=== PATIENT | male | born 1955 | race Caucasian/White ===

== ENCOUNTER 2016-05-28 19:45 | Emergency (ER) | payer BC ==
[~2016-05-28] VITALS: Ht 177.8 cm; Wt 95.0 kg
--- OUTSIDE RECORDS SUMMARY | 2016-05-28 19:49 | XMS REPORT | Referral Summary ---
Author Author [facility], [facility] Care Organization [facility] Address Unknown Phone Unavailable Care Team Providers Care Locomotive Observer Name Role Phone Kasi Berry Primary Care Physician [phone] Encounter VC Date(s): 05/27/15 - 05/27/15 [facility] [place], [address] [place] [address]- Discharge Diagnosis: Acute maxillary sinusitis Discharge Disposition: 01-Home or Self Care Attending Physician: Denis Teague PA-C Admitting Physician: Denis Teague PA-C Vital Signs Most recent to 1 oldest [Reference Range]: Temperature Tympanic 36.7 degC [36.6-38.1 degC] (05/27/15 5:41 PM) Peripheral Pulse 73 bpm Rate [60-100 bpm] (05/27/15 5:41 PM) Blood Pressure 142/82 mmHg [90-140/60-90 mmHg] *HI* (05/27/15 5:41 PM) SpO2 97 % (05/27/15 5:41 PM) Problem List Condition Effective Dates Status Health Status Informant Depression(Confirmed Active ) Rib Active fractures(Confirmed) 1 Hypertension(Confirm Active ed) Overweight(Confirmed Active ) Right testicular Active pain(Confirmed)2 Palpitations and Active prior neck surgery(Confirmed)3 Pure Active hypercholesterolemia (Confirmed) Benign seborrheic Active keratosis(Confirmed) 4 1see conversion document. 2See conversion document. 3See NextGen. 4See conversion document. Allergies, Adverse Reactions, Alerts No Known Medication Allergies Medications aspirin 81 mg oral delayed release tablet 1 tabs, Oral, Daily, 0 Refill(s) Start Date: 02/04/14 Status: Ordered benzonatate 200 mg oral capsule See Instructions, 1 CAPS ORAL TID,X7 DAYS, # 21 caps, eRx: [facility] [id number], 1 CAPS ORAL TID,X7 DAYS Start Date: 03/21/15 Status: Ordered Levaquin 500 mg oral tablet 500 mg 1 tabs, Oral, q24hr, X 10 days, # 10 tabs, 0 Refill(s), Pharmacy: [facility] [id number], 1 tabs Oral q24hr,x10 days Start Date: 05/27/15 Stop Date: 06/06/15 Status: Ordered NexIUM 40 mg oral delayed release capsule 1 caps, Oral, Daily, 0 Refill(s) Start Date: 02/04/14 Status: Ordered PARoxetine 10 mg oral tablet See Instructions, 1 TABS ORAL DAILY, # 90 unknown unit, 2 Refill(s), eRx: [facility] [id number], 1 TABS ORAL DAILY Start Date: 01/20/15 Status: Ordered Toprol-XL 50 mg oral tablet, extended release See Instructions, 1 TABS ORAL DAILY, # 90 unknown unit, 3 Refill(s), eRx: [facility] [id number], 1 TABS ORAL DAILY Start Date: 05/19/15 Status: Ordered Results No data available for this section Immunizations Vaccine Date Refusal Reason tetanus/diphth/pertuss (Tdap) adult/adol 10/27/06 hepatitis B adult vaccine 05/19/95 influenza virus vaccine, inactivated1 02/05/14 influenza virus vaccine, live 11/16/11 pneumococcal 23-polyvalent vaccine 11/28/03 1Result Comment: [02/05/2014] see scanned document Procedures Procedure Date Related Diagnosis Body Site Release of R thumb flexor tendon sheath1 05/11/11 Appendectomy Spinal fusion in 5th and 6th cervical vertebrae2 Tonsillectomy Trigger finger release3 1See conversion document. 2See NextGen. 3Several fingers both hands. See NextGen. Social History Social History Type Response Smoking Status Never smoker Assessment and Plan No data available for this section
--- OUTSIDE RECORDS SUMMARY | 2016-05-28 19:49 | XMS REPORT | Referral Summary ---
Author Author [facility] [address] Organization [facility] Address Unknown Phone Unavailable Care Team Providers Care Pond Scaler Name Role Phone Kasi Berry Primary Care Physician [phone] Encounter VC Date(s): 06/03/15 - 06/03/15 [facility] [address] Ot[facility] [address] [place], [place] [address] Discharge Diagnosis: Chronic recurrent sinusitis Discharge Disposition: 01-Home or Self Care Attending Physician: Za Palafox DO Referring Physician: Kyle Berry MD Vital Signs No data available for this section Problem List Condition Effective Dates Status Health Status Informant Chronic recurrent Active sinusitis(Confirmed) Depression(Confirmed Active ) Rib Active fractures(Confirmed) 1 Hypertension(Confirm Active ed) Overweight(Confirmed Active ) Right testicular Active pain(Confirmed)2 Palpitations and Active prior neck surgery(Confirmed)3 Pure Active hypercholesterolemia (Confirmed) Benign seborrheic Active keratosis(Confirmed) 4 1see conversion document. 2See conversion document. 3See NextGen. 4See conversion document. Allergies, Adverse Reactions, Alerts Substance Reaction Severity Status Levaquin Confusion Active Medications aspirin 81 mg oral delayed release tablet 1 tabs, Oral, Daily, 0 Refill(s) Start Date: 02/04/14 Status: Ordered benzonatate 200 mg oral capsule See Instructions, 1 CAPS ORAL TID,X7 DAYS, # 21 caps, eRx: [facility] [id number], 1 CAPS ORAL TID,X7 DAYS Start Date: 03/21/15 Status: Ordered NexIUM 40 mg oral delayed release capsule 1 caps, Oral, Daily, 0 Refill(s) Start Date: 02/04/14 Status: Ordered PARoxetine 10 mg oral tablet See Instructions, 1 TABS ORAL DAILY, # 90 unknown unit, 2 Refill(s), eRx: [facility] [id number], 1 TABS ORAL DAILY Start Date: 01/20/15 Status: Ordered Toprol-XL 50 mg oral tablet, extended release See Instructions, 1 TABS ORAL DAILY, # 90 unknown unit, 3 Refill(s), eRx: [facility] [id number], 1 TABS ORAL DAILY Start Date: 05/19/15 [...] Smoking Status Never smoker Assessment and Plan Extracted from: Title: Ambulatory Patient Education Author: Za Palafox DO Date: 06/03/15 Allergy Sinusitis, Adult Sinusitis is redness, soreness, and inflammation of the paranasal sinuses. Paranasal sinuses are air pockets within the bones of your face. They are located beneath your eyes, in the middle of your forehead, and above your eyes. In healthy paranasal sinuses, mucus is able to drain out, and air is able to circulate through them by way of your nose. However, when your paranasal sinuses are inflamed, mucus and air can become trapped. This can allow bacteria and other germs to grow and cause infection. Sinusitis can develop quickly and last only a short time (acute) or continue over a long period (chronic). Sinusitis that lasts for more than 12 weeks is considered chronic. CAUSES Causes of sinusitis include: Allergies. Structural abnormalities, such as displacement of the cartilage that separates your nostrils (deviated septum), which can decrease the air flow through your nose and sinuses and affect sinus drainage. Functional abnormalities, such as when the small hairs (cilia) that line your sinuses and help remove mucus do not work properly or are not present. SIGNS AND SYMPTOMS Symptoms of acute and chronic sinusitis are the same. The primary symptoms are pain and pressure around the affected sinuses. Other symptoms include: Upper toothache. Earache. Headache. Bad breath. Decreased sense of smell and taste. A cough, which worsens when you are lying flat. Fatigue. Fever. Thick drainage from your nose, which often is green and may contain pus ( purulent). Swelling and warmth over the affected sinuses. DIAGNOSIS Your health care provider will perform a physical exam. During your exam, your health care provider may perform any of the following to help determine if you have acute sinusitis or chronic sinusitis: Look in your nose for signs of abnormal growths in your nostrils (nasal polyps). Tap over the affected sinus to check for signs of infection. View the inside of your sinuses using an imaging device that has a light attached (endoscope). If your health care provider suspects that you have chronic sinusitis, one or more of the following tests may be recommended: Allergy tests. Nasal culture. A sample of mucus is taken from your nose, sent to a lab, and screened for bacteria. Nasal cytology. A sample of mucus is taken from your nose and examined by your health care provider to determine if your sinusitis is related to an allergy. TREATMENT Most cases of acute sinusitis are related to a viral infection and will resolve on their own within 10 days. Sometimes, medicines are prescribed to help relieve symptoms of both acute and chronic sinusitis. These may include pain medicines, decongestants, nasal steroid sprays, or saline sprays. However, for sinusitis related to a bacterial infection, your health care provider will prescribe antibiotic medicines. These are medicines that will help kill the bacteria causing the infection. Rarely, sinusitis is caused by a fungal infection. In these cases, your health care provider will prescribe antifungal medicine. For some cases of chronic sinusitis, surgery is needed. Generally, these are cases in which sinusitis recurs more than 3 times per year, despite other treatments. HOME CARE INSTRUCTIONS Drink plenty of water. Water helps thin the mucus so your sinuses can drain more easily. Use a humidifier. Inhale steam 34 times a day (for example, sit in the bathroom with the shower running). Apply a warm, moist washcloth to your face 34 times a day, or as directed by your health care provider. Use saline nasal sprays to help moisten and clean your sinuses. Take medicines only as directed by your health care provider. If you were prescribed either an antibiotic or antifungal medicine, finish it all even if you start to feel better. SEEK IMMEDIATE MEDICAL CARE IF: You have increasing pain or severe headaches. You have nausea, vomiting, or drowsiness. You have swelling around your face. You have vision problems. You have a stiff neck. You have difficulty breathing. This information is not intended to replace advice given to you by your health care provider. Make sure you discuss any questions you have with your health care provider. Document Released: 02/14/2006 Document Revised: 12/03/2014 Document Reviewed: [employer] Patient Information 2015 [facility] [employer]. No follow up information was provided.
--- OUTSIDE RECORDS SUMMARY | 2016-05-28 19:49 | XMS REPORT | Referral Summary ---
Author Author [facility] Organization [facility] Address Unknown Phone Unavailable Care Team Providers Care Diesel Engine Engineer Name Role Phone Kasi Berry Primary Care Physician [phone] Encounter VC Date(s): 12/10/15 - 12/10/15 [facility] [address] [place] [address] Discharge Disposition: 01-Home or Self Care Attending Physician: Kyle Berry MD Admitting Physician: Kyle Berry MD Referring Physician: Kyle Berry MD Vital Signs No data available for this section Problem List Condition Effective Dates Status Health Status Informant Chronic recurrent Active sinusitis(Confirmed) Depression(Confirmed Active ) Nasal septal Active deviation(Confirmed) Rib Active fractures(Confirmed) 1 Hypertension(Confirm Active ed) [...] 0 Refill(s) Start Date: 02/04/14 Status: Ordered NexIUM 40 mg oral delayed release capsule 1 caps, Oral, Daily, 0 Refill(s) Start Date: 02/04/14 Status: Ordered PARoxetine 10 mg oral tablet 10 mg 1 tabs, Oral, Daily, PT HAS APPT ON 12/10/2015, # 10 tabs, 0 Refill(s), Pharmacy: [facility] [id number], 1 tabs Oral Daily,Instr:PT HAS APPT ON 01/2016 Start Date: 12/02/15 Status: Ordered Toprol-XL 50 mg oral tablet, extended release See Instructions, 1 TABS ORAL DAILY, # 90 unknown unit, 3 Refill(s), eRx: [facility] [id number], 1 TABS ORAL DAILY Start Date: 05/19/15 Status: Ordered Results No data available for this section Immunizations Vaccine Date Refusal Reason tetanus/diphth/pertuss (Tdap) adult/adol 10/27/06 hepatitis B adult vaccine 05/19/95 influenza virus vaccine, inactivated1 02/05/14 influenza virus vaccine, live 11/16/11 pneumococcal 23-polyvalent vaccine 11/28/03 zoster vaccine live 12/10/15 1Result Comment: [02/05/2014] see scanned document Procedures Procedure Date Related Diagnosis Body Site Release of R thumb flexor tendon sheath1 05/11/11 Colonoscopy normal2 12/22/06 Appendectomy Spinal fusion in 5th and 6th cervical vertebrae3 Tonsillectomy Trigger finger release4 1See conversion document. 2Colonoscopy was done November 2006. It was a normal colonoscopy. Repeat recommended in 10 years. 3See NextGen. 4Several fingers both hands. See NextGen. Social History Social History Type Response Smoking Status Never smoker Assessment and Plan No data available for this section
--- OUTSIDE RECORDS SUMMARY | 2016-05-28 19:49 | XMS REPORT | Referral Summary ---
Author Author [facility] Organization [facility] Address Unknown Phone Unavailable Care Team Providers Care Healthcare Project Manager Name Role Phone Kasi Berry Primary Care Physician [phone] Encounter VC Date(s): 12/10/15 - 12/10/15 [facility] [address] [place] [address] Discharge Diagnosis: Depression Discharge Diagnosis: Hypertension Discharge Diagnosis: Overweight Discharge Diagnosis: Pure hypercholesterolemia Discharge Disposition: 01-Home or Self Care Attending Physician: Kyle Berry MD Admitting Physician: Kyle Berry MD Vital Signs Most recent to 1 oldest [Reference Range]: Peripheral Pulse 70 bpm Rate [60-100 bpm] (12/10/15 9:10 AM) Blood Pressure 128/88 mmHg [90-140/60-90 mmHg] (12/10/15 9:10 AM) Problem List Condition Effective Dates Status Health [...] 12/10/2015, # 10 tabs, 0 Refill(s), Pharmacy: [facility] [id number], 1 tabs Oral Daily,Instr:PT HAS APPT ON 01/2016 Start Date: 12/02/15 Status: Ordered Toprol-XL 50 mg oral tablet, extended release See Instructions, 1 TABS ORAL DAILY, # 90 unknown unit, 3 Refill(s), eRx: [facility] [id number], 1 TABS ORAL DAILY Start Date: 05/19/15 Status: Ordered Results Hematology Most recent to 1 oldest [Reference Range]: WBC [4.8-10.8 9.8 10*3/uL 10*3/uL] (12/10/15 10:12 AM) RBC [4.60-6.20] 5.15 (12/10/15 10:12 AM) Hgb [14.0-18.0 14.5 gm/dL gm/dL] (12/10/15 10:12 AM) Hct [42.0-52.0 %] 44.1 % (12/10/15 10:12 AM) MCV [82.0-99.0 fL] 85.6 fL (12/10/15 10:12 AM) MCH [27.0-32.0 pg] 28.2 pg (12/10/15 10:12 AM) MCHC [32.0-36.0 32.9 gm/dL gm/dL] (12/10/15 10:12 AM) RDW [11.5-14.5 %] 12.7 % (12/10/15 10:12 AM) Platelet [150-400 235 10*3/uL 10*3/uL] (12/10/15 10:12 AM) MPV [8.8-14.8 fL] 10.9 fL (12/10/15 10:12 AM) Immature 1.3 % Granulocytes *HI* [0.0-1.0 %] (12/10/15 10:12 AM) Neutrophils [51-75 61 % %] (12/10/15 10:12 AM) Lymphocytes [20-46 24 % %] (12/10/15 10:12 AM) Monocytes [4-11 %] 9 % (12/10/15 10:12 AM) Eosinophils [0-4 %] 4 % (12/10/15 10:12 AM) Basophils [0-2 %] 1 % (12/10/15 10:12 AM) Neutro Absolute 5.96 10*3 [1.90-7.00 10*3] (12/10/15 10:12 AM) Lymph Absolute 2.38 10*3 [0.80-3.30 10*3] (12/10/15 10:12 AM) [place] Absolute 0.90 10*3 [0.30-1.00 10*3] (12/10/15 10:12 AM) Eos Absolute 0.36 10*3 [0.00-0.50 10*3] (12/10/15 10:12 AM) Baso Absolute 0.09 10*3 [0.00-0.20 10*3] (12/10/15 10:12 AM) Chemistry Most recent to 1 oldest [Reference Range]: Sodium Lvl [135-144 141 mEq/L mEq/L] (12/10/15 10:12 AM) Potassium Lvl 4.5 mEq/L [3.5-5.2 mEq/L] (12/10/15 10:12 AM) Chloride [99-111 102 mEq/L mEq/L] (12/10/15 10:12 AM) CO2 [23-31 mEq/L] 29 mEq/L (12/10/15 10:12 AM) AGAP [3-20] 10 (12/10/15 10:12 AM) BUN [8-26 mg/dL] 20 mg/dL (12/10/15 10:12 AM) Glucose Lvl [70-99 141 mg/dL mg/dL] *HI* (12/10/15 10:12 AM) Creatinine Lvl 1.05 mg/dL [0.72-1.25 mg/dL] (12/10/15 10:12 AM) eGFR [>60 mL/min] >60 mL/min 1 (12/10/15 10:12 AM) Calcium Lvl 9.4 mg/dL [8.9-10.5 mg/dL] (12/10/15 10:12 AM) Albumin Lvl [3.4-4.8 4.0 gm/dL gm/dL] (12/10/15 10:12 AM) Total Protein 6.4 gm/dL [6.0-7.6 gm/dL] (12/10/15 10:12 AM) Globulin [1.8-4.0 2.4 gm/dL gm/dL] (12/10/15 10:12 AM) ALT [0-55 U/L] 26 U/L (12/10/15 10:12 AM) AST [5-34 U/L] 20 U/L (12/10/15 10:12 AM) Alk Phos [40-150 73 U/L U/L] (12/10/15 10:12 AM) Bili Total [0.2-1.2 0.5 mg/dL mg/dL] (12/10/15 10:12 AM) PSA (wihout Reflex 0.6 ng/mL 2 Free) [0.0-4.5 (12/10/15 10:12 AM) ng/mL] Chol [0-199 mg/dL] 196 mg/dL (12/10/15 10:12 AM) Trig [0-149 mg/dL] 147 mg/dL (12/10/15 10:12 AM) HDL [40-84 mg/dL] 47 mg/dL (12/10/15 10:12 AM) LDL [0-130 mg/dL] 120 mg/dL (12/10/15 10:12 AM) VLDL Cholesterol 29 mg/dL [0-28 mg/dL] *HI* (12/10/15 10:12 AM) Cardiac Risk 4.2 [0.0-5.7] (12/10/15 10:12 AM) 1Result Comment: Multiply eGFR results by 1.21 for race. 2Result Comment: AUA PSA Best Practice Guidelines: Age-Adjusted PSA Values by Ethnic Group Age Range Asians - Caucasians Americans 40-49 0-2.0 0-2.0 0-2.5 50-59 0-3.0 0-4.0 0-3.5 60-69 0-4.0 0-4.5 0-4.5 70-79 0-5.0 0-5.5 0-6.5 Immunizations Vaccine Date Refusal Reason tetanus/diphth/pertuss (Tdap) adult/adol 10/27/06 hepatitis B adult vaccine 05/19/95 influenza virus vaccine, inactivated1 02/05/14 influenza virus vaccine, live 11/16/11 pneumococcal 23-polyvalent vaccine 11/28/03 zoster vaccine live 12/10/15 1Result Comment: [02/05/2014] see scanned document Procedures Procedure Date Related Diagnosis Body Site Collection of venous blood by venipuncture 12/10/15 Release of R thumb flexor tendon sheath1 [...] smoker Assessment and Plan Extracted from: Title: Office Visit Note Author: Kyle Berry MD Date: 12/10/15 Assessment/Plan 1.Hypertension Blood pressure looks good today so no change in treatment. I'll update his lab in this regard. Otherwise I'll reevaluate in one year or as needed providing all of his lab looks okay. Ordered: CBC w/ Differential Comprehensive Metabolic Panel Lipid Panel Office Visit Level 5 Est 00304 Prostate Specific Antigen Return to Clinic 2.Pure hypercholesterolemia Lipid profile to be done this morning and I' ll let him know the results. Ordered: Comprehensive Metabolic Panel Lipid Panel Office Visit Level 5 Est 96098 Return to Clinic 3.Depression His depression is resolved. He's going to try and wean off his generic Paxil by taking 1 pill every other day for a month and then stop. Ordered: Office Visit Level 5 Est 44498 Return to Clinic 4.Overweight Weight is stable. He'll continue the same. Were giving him a Zostavax injection today. He'll get the flu shot later todayat work he says. He'll have always basic lab done. If all this looks okay all see him back in one year or as needed. Otherwise I did accomplish a comprehensive annual history and physical exam today. Ordered: CBC w/ Differential Comprehensive Metabolic Panel Office Visit Level 5 Est 85441 Return to Clinic Referrals to Other Providers Referred by: Kyle Berry MD
--- OUTSIDE RECORDS SUMMARY | 2016-05-28 19:49 | XMS REPORT | Continuity of Care Document ---
Author Author [facility] Organization [facility] Address Unknown Phone Unavailable Allergies Active Description Code Type Severity Reaction Onset Reported/Identified Relationship to Patient Clinical Status Yes No Known Medication Allergies NKMA N/A N/A 01/28/2014 Yes Levaquin NKMA N/A [id number] 06/03/2015 Medications Problems Procedures Results Test Result Range CBC With Platelet and Differential - 12/10/15 10:12 Absolute Basophils 0.09 10*3 0.00-0.20 Absolute Eosinophils 0.36 10*3 0.00-0.50 Absolute Lymphocytes 2.38 10*3 0.80-3.30 Absolute Monocytes 0.90 10*3 0.30-1.00 Absolute Neutrophils 5.96 10*3 1.90-7.00 Basophils 1 % 0-2 Eosinophils 4 % 0-4 HCT 44.1 % 42.0-52.0 HGB 14.5 g/dL 14.0-18.0 Immature Granulocytes 1.3 % 0.0-1.0 Lymphocytes 24 % 20-46 MCH 28.2 pg 27.0-32.0 MCHC 32.9 g/dL 32.0-36.0 MCV 85.6 fL 82.0-99.0 Monocytes 9 % 4-11 MPV 10.9 fL 8.8-14.8 Neutrophils 61 % 51-75 Platelet Count 235 K/uL 150-400 RBC 5.15 10*6/uL 4.60-6.20 RDW 12.7 % 11.5-14.5 WBC 9.8 K/uL 4.8-10.8 Lipid Panel - 12/10/15 10:12 Cardiac Risk 4.2 0.0-5.7 Cholesterol 196 mg/dL 0-199 HDL Cholesterol 47 mg/dL 40-84 LDL Cholesterol 120 mg/dL 0-130 Triglycerides 147 mg/dL 0-149 VLDL Cholesterol 29 mg/dL 0-28 Comprehensive Metabolic Panel (CMP) - 12/10/15 10:12 Albumin 4.0 g/dL 3.4-4.8 Alkaline Phosphatase 73 U/L 40-150 ALT (SGPT) 26 U/L 0-55 Anion Gap 10 NA 3-20 AST (SGOT) 20 U/L 5-34 Bilirubin Total 0.5 mg/dL 0.2-1.2 BUN 20 mg/dL 8-26 Calcium 9.4 mg/dL 8.9-10.5 Chloride 102 mEq/L 99-111 CO2 29 mEq/L 23-31 Creatinine 1.05 mg/dL 0.72-1.25 Globulin 2.4 g/dL 1.8-4.0 Glucose 141 mg/dL 70-99 Potassium 4.5 mEq/L 3.5-5.2 Protein 6.4 g/dL 6.0-7.6 Sodium 141 mEq/L 135-144 eGFR - 12/10/15 10:12 eGFR >60 mL/min >60 PSA - 12/10/15 10:12 PSA 0.6 ng/mL 0.0-4.5 Comprehensive Metabolic Panel (CMP) - 05/24/16 17:14 Albumin 4.2 g/dL 3.4-4.8 Alkaline Phosphatase 75 U/L 40-150 ALT (SGPT) 48 U/L 0-55 Anion Gap 9 NA 3-20 AST (SGOT) 32 U/L 5-34 Bilirubin Total 0.5 mg/dL 0.2-1.2 BUN 16 mg/dL 8-26 Calcium 9.8 mg/dL 8.4-10.2 Chloride 102 mEq/L 99-111 CO2 31 mEq/L 23-31 Creatinine 1.05 mg/dL 0.72-1.25 Globulin 2.6 g/dL 1.8-4.0 Glucose 94 mg/dL 70-99 Potassium 4.8 mEq/L 3.5-5.2 Protein 6.8 g/dL 6.0-7.6 Sodium 142 mEq/L 135-144 eGFR - 05/24/16 17:14 eGFR >60 mL/min >60 CBC With Platelet and Differential - 05/24/16 17:14 Absolute Basophils 0.09 10*3/uL 0.00- 0.20 Absolute Eosinophils 0.55 10*3/uL 0.00- 0.50 Absolute Lymphocytes 2.55 10*3/uL 0.80- 3.30 Absolute Monocytes 0.98 10*3/uL 0.30- 1.00 Absolute Neutrophils 5.69 10*3/uL 1.90- 7.00 Basophils 1 % 0-2 Eosinophils 6 % 0-4 HCT 46.0 % 42.0-52.0 HGB 15.1 g/dL 14.0-18.0 Immature Granulocytes 0.7 % 0.0-1.0 Lymphocytes 26 % 20-46 MCH 28.0 pg 27.0-32.0 MCHC 32.8 g/dL 32.0-36.0 MCV 85.2 fL 82.0-99.0 Monocytes 10 % 4-11 MPV 11.5 fL 8.8-14.8 Neutrophils 57 % 51-75 Platelet Count 232 K/uL 150-400 RBC 5.40 10*6/uL 4.60-6.20 RDW 12.9 % 11.5-14.5 WBC 9.9 K/uL 4.8-10.8 Sedimentation Rate - 05/24/16 17:14 Sedimentation Rate 7 mm/h 0-15 Encounters ACCT No. Visit Date/Time Discharge Status Pt. Type Provider Facility Loc./Unit Complaint [id number] 05/24/2016 16:05:00 2016 23:59:00 DIS Outpatient Kyle Berry [facility] IM BACK PAIN 1 WEEK [id number] 12/10/2015 09:54:00 2015 23:59:00 DIS Outpatient Kyle Berry [facility] IM zostavax [id number] 12/10/2015 09:05:00 2015 23:59:00 DIS Outpatient Kyle Berry [facility] IM re establish care [id number] 06/03/2015 08:12:00 2015 23:59:00 DIS Outpatient Za Palafox [facility] ENT RECURRENT SINUS INFECTIONS DEVIATED SEPTUM [id number] 05/27/2015 17:22:00 2015 23:59:00 DIS Outpatient Denis Teague [facility] IC SINUS ISSUES [id number] 03/03/2015 17:29:00 2015 23:59:00 DIS Outpatient Denis Teague [facility] IC POSS SINUS INFEC [id number] 02/15/2014 08:05:00 2013 23:59:00 DIS Outpatient Kyle Berry [facility] IM left sided pain [id number] 02/05/2014 07:35:00 2013 23:59:00 DIS Outpatient Kyle Berry [facility] IM IC f/u cough and congestion [id number] 01/28/2014 17:43:00 2013 23:59:00 DIS Outpatient Axel Shah [facility] IC POSS SINUS INFEC
--- OUTSIDE RECORDS SUMMARY | 2016-05-28 19:49 | XMS REPORT | Referral Summary ---
Author Author [facility] [place], [facility] Care Organization [facility] Address Unknown Phone Unavailable Care Team Providers Care Shear Helper Name Role Phone Kasi Berry Primary Care Physician [phone] Encounter VC Date(s): 03/03/15 - 03/03/15 [facility] [place], [address] [place] [id number] Discharge Diagnosis: Acute URI Discharge Diagnosis: Acute sinusitis Discharge Disposition: 01-Home or Self Care Attending Physician: Denis Teague PA-C Admitting Physician: Denis Teague PA-C Vital Signs Most recent to 1 oldest [Reference Range]: Temperature Tympanic 36.7 degC [36.6-38.1 degC] (03/03/15 5:37 PM) Apical Heart Rate 88 bpm [60-100 bpm] (03/03/15 5:37 PM) Blood Pressure 136/84 mmHg [90-140/60-90 mmHg] (03/03/15 5:37 PM) SpO2 98 % (03/03/15 5:37 PM) Problem List Condition Effective Dates Status [...] 0 Refill(s) Start Date: 02/04/14 Status: Ordered Augmentin 875 mg-125 mg oral tablet 1 tabs, Oral, q12hr, X 10 days, # 20 tabs, 0 Refill(s), Pharmacy: [id number] Start Date: 03/03/15 Stop Date: 03/13/15 Status: Ordered NexIUM 40 mg oral delayed release capsule 1 caps, Oral, Daily, 0 Refill(s) Start Date: 02/04/14 Status: Ordered PARoxetine 10 mg oral tablet See Instructions, 1 TABS ORAL DAILY, # 90 unknown unit, 2 Refill(s), [facility]Rx: [facility] [id number], 1 TABS ORAL DAILY Start Date: 01/20/15 Status: Ordered Tessalon 200 mg oral capsule 200 mg 1 caps, Oral, TID, X 7 days, # 21 caps, 0 Refill(s), Pharmacy: [facility] [id number], 1 caps Oral TID,x7 days Start Date: 03/03/15 Stop Date: 03/10/15 Status: Ordered Toprol-XL 50 mg oral tablet, extended release See Instructions, 1 TABS ORAL DAILY, # 90 unknown unit, eRx: [facility] [id number], 1 TABS ORAL DAILY Start Date: 02/12/15 Status: Ordered Results No data available for [...]
[2016-05-28 19:50] VITALS: Ht 177.8 cm; Wt 95.0 kg
[2016-05-28] MEDS ORDERED: ASPI-557 PO (20:08)
[2016-05-28] MEDS ORDERED: ONDA4TAB7 PO (20:08)
[2016-05-28] MEDS ORDERED: ESOM20TA PO (20:08)
[2016-05-28] MEDS ORDERED: METO-277 PO (20:08)
[2016-05-28] MEDS ORDERED: PARO10TA72 PO (20:08)
[2016-05-28] MEDS ORDERED: TRAM50TA4 PO (20:08)
--- NOTE | 2016-05-28 20:15 | NUR ---
ANTHONY GUTIERREZ IN ROOM WITH PT
--- NOTE | 2016-05-28 20:26 | ERPDOC ---
Departure Disposition Decision Date: May 28, 2016 Disposition Decision Time: 23:33 Disposition: 01 DISCHARGED HOME, SELF-CARE Impression Impression Impression: Primary Impression: Nausea alone Additional Impression: Anxiety about health Condition: Stable Seen By: Mid-level only Referrals: HOLA MCNEAL (Family) Patient Instructions: Acute Nausea and Vomiting (ED), Anxiety (ED) Problems/Meds/Labs Reviewed?: Yes Medications reviewed and manag: Yes Additional Instructions: 1. It is very important you follow up with your primary care doctor regarding the discomfort and medical issues you have been experiencing. 2. You can take Zofran as needed for nausea 3. Try a bland diet to help offset some of the nausea 4. Avoid tramadol for pain in case this has started the nausea Follow up care ordered?: Yes Mental Status: Alert, Oriented HPI - Abdominal Pain General Chief Complaint: Nausea,Vomiting,Diarrhea Stated Complaint: SEVERE NAUSEA Time Seen by Provider: 20:26 Source: patient, family () History/Exam Limitations: no limitations HPI - Abdominal Pain Initial Comments Mr. Palmer is a 61 year old gentleman who has been experiencing some back pain related to bulging discs cared for by his PCP Dr. Mcneal at [facility] in [place]. Tuesday he was started on tramadol and took 2 tabs, then another 2 tabs 4 hours later. Tuesday he took 3 tabs throughout the day but began to feel significant nausea and then discontinued taking it. Has had persisting nausea since that time. Reports a general discomfort in his mid abdomen-last BM was a small one yesterday. Has not been eating much. Today drank one bottle of water. Denies chest pain or soa. Denies diarrhea. reports he has been quite anxious over this situation. Patient reports feeling some vertigo intermittently , is not able to identify when it is happening but states it is mild in nature. Dr blakely did call out some Zofran for patient on Tuesday and he has taken two tablets but none today. Comes to the ER this evening for help with the nausea as Zofran is not helping. Occurred At: home Onset: Getting worse Duration: 1 week Quality: fullness Radiation: no radiation Activities at Onset: none Modifying Factors: WORSE WITH: lying down Associated Symptoms: nausea/vomiting, DENIES: chest pain, fever/chills, shortness of breath Allergies: Coded Allergies: No Known Allergies (Unverified , 05/28/16) Past History Past Medical History GI: GERD Musculoskeletal: back pain Surgical History General: appendix Social History Smoking Status: Never smoker Substance Use Type: does not use Marital Status: Current Occupational Status: retired Current Occupation: retired trooper Review of Systems Constitutional Constitutional: dizziness, DENIES: fever ENMT Mouth/Throat: DENIES: sore throat Cardiovascular Cardiac: DENIES: chest pain, dyspnea on exertion Pulmonary Respiratory: DENIES: cough GI Upper Abdomen: nausea, DENIES: vomiting Lower Abdomen: pain (fullness), DENIES: blood in stool, diarrhea General: DENIES: dysuria Musculoskeletal General: pain (back) Integumentary Skin: DENIES: rash Neurological General: DENIES: weakness Psychiatric Psychiatric: anxiety, depression All other Systems All Other Systems: Reviewed and Negative Physical Exam General General Nourishment: well nourished, well developed, appears stated age, no acute distress Vitals and Pain First Documented Vital Signs Date Time Temp Pulse Resp B/P Pulse Ox O2 Delivery O2 Flow Rate FiO2 05/28/16 19:50 98.1 58 18 160/77 97 Room Air Weight: Kilograms: 95.000 Height (feet): 5 Height (inches): 10.00 Triage Pain Scale: Eyes (brief) Eyes Brief: found: EOMI, PERRL, not found: scleral icterus ENMT (brief) ENMT Brief: FOUND: TM clear, TM good light reflex, mucosa moist, normal dentition, NOT FOUND: ear canals clear (cerumen partially obstructing), nasal exudate, nasal swelling Neck (brief) Neck: FOUND: trachea midline, NOT FOUND: JVD, thyromegaly Respiratory (brief) Respiratory: FOUND: clear all grossman, equal bilaterally Cardiovascular (brief) Cardiac: FOUND: regular rate, regular rhythm, NOT FOUND: peripheral edema Abdomen (brief) Abdominal Brief: FOUND: bowel normo active x4, soft, NOT FOUND: distended, pulsatile mass, tender (no palpable tenderness) Lymphatic (brief) Lymphatic Brief: NOT FOUND: lymphedema Integumentary (brief) Integumentary Brief: FOUND: dry, pink, warm, NOT FOUND: rash Psychiatric (brief) Psychiatric Brief: FOUND: alert, attentive, normal affect, oriented Differential Diagnoses Considering: Bowel Obstruction, Dehydration, Gastroenteritis, Pancreatitis, Toxin, UTI Progress Results/Orders Orders Procedure Category Date Status Time Cmp - Comprehensive LAB 05/28/16 Complete Metabolic 20:36 Lipase LAB 05/28/16 Complete 20:36 Ua, Dip Wreflex LAB 05/28/16 Complete Microsc & Esl Teacher 20:36 Kub W/Upright RAD 05/28/16 Taken 20:36 Iv Lock (Ed Only) EDM 05/28/16 Transmitted 20:36 Normal Saline (Normal PHA 05/28/16 Complete Saline Iv) 20:36 Ondansetron Inj PHA 05/28/16 Complete (Zofran) 20:45 Meclizine (Antivert PHA 05/28/16 Complete 25 Mg) 20:45 Cbc W/Auto LAB 05/28/16 Complete Diff-Reflex Manual EKG EKG 05/28/16 Taken Troponin I W LAB 05/28/16 Complete Hemolysis Index Metoclopramide PHA 05/28/16 Logged (Reglan Inj) 22:00 Ct Abd/Pelvis CT 05/28/16 Taken W/Contrast Only Iohexol (Omnipaque) PHA 05/28/16 Complete 21:59 Normal Saline (Ns) PHA 05/28/16 Complete 21:59 Saline Flush (Iv PHA 05/28/16 Complete Flush) 21:59 G.I. Cocktail PHA 05/28/16 Complete (/Maalox/Lidocaine 22:45 Ketorolac (Toradol) PHA 05/28/16 Complete 23:00 Lorazepam (Ativan) PHA 05/28/16 Complete 23:15 Lab Results Laboratory Tests Test 05/28/16 21:02 05/28/16 21:37 White Blood Count 12.2T/MM3 Red Blood Count 5.45M/MM3 Hemoglobin 15.0GM/DL Hematocrit 45.8% Mean Corpuscular Volume 84.0UM3 Mean Corpuscular Hemoglobin 27.5UUG Mean Corpuscular Hemoglobin Concent 32.8GM/DL RDW Standard Deviation 39.2FL Platelet Count 244T/MM3 Mean Platelet Volume 11.1UM3 Immature Granulocyte % (Auto) 0.4% Neutrophils (%) (Auto) 71.1% Lymphocytes (%) (Auto) 19.9% Monocytes (%) (Auto) 6.2% Eosinophils (%) (Auto) 1.8% Basophils (%) (Auto) 0.6% Absolute Immature Granulocyte (auto 0.05T/MM3 Absolute Neutrophils (auto) 8.7T/MM3 Absolute Lymphocytes (auto) 2.4T/MM3 Absolute Monocytes (auto) 0.8T/MM3 Absolute Eosinophils (auto) 0.2T/MM3 Absolute Basophils (auto) 0.1T/MM3 Turbidity < 20 Sodium Level 144MEQ/L Potassium Level 4.6MEQ/L Chloride Level 102MEQ/L Carbon Dioxide Level 27MEQ/L Anion Gap 15MEQ/L Blood Urea Nitrogen 24.0MG/DL Creatinine 1.0MG/DL Glomerular Filtration Rate Calc 75 BUN/Creatinine Ratio 24RATIO Glucose Level 112MG/DL Calculated Osmolality 282MOSM/KG Calcium Level 9.9MG/DL Total Bilirubin 1.20MG/DL Icterus Index < 2 Aspartate Amino Transf (AST/SGOT) 32U/L Alanine Aminotransferase (ALT/SGPT) 51U/L Alkaline Phosphatase 76U/L Troponin I < 0.012ng/ml Total Protein 7.1G/DL Albumin 4.2G/DL Globulin 2.9G/DL Albumin/Globulin Ratio 1.4RATIO Lipase 111U/L Chemistry Specimen Hemolysis < 15 Urine Collection Type Urine Color Yellow Urine Turbidity Clear Urine pH 5.5 Urine Specific [place] >=1.030 Urine Protein Negative Urine Glucose (UA) Negative Urine Ketones 2+ Urine Blood Trace-intact Urine Nitrite Negative Urine Bilirubin Negative Urine Urobilinogen 0.2EU/DL Urine Leukocyte Esterase Negative Urinalysis Comment Microscopic not ind. Medications Current ED Medications Sodium Chloride (Normal Saline IV) 1,000 ml @ 1,000 mls/hr Q1H ONCE IV Last administered on 05/28/16 20:53; Start 05/28/16 at 20:36; Stop 05/28/16 at 21:35 ; Status DC Ondansetron HCl (Zofran) 4 mg O ONCE IV Last administered on 05/28/16 20:54; Start 05/28/16 at 20:45; Stop 05/28/16 at 20:46; Status DC Meclizine HCl (Antivert 25 Mg) 25 mg O ONCE PO Last administered on 05/28/16 20:55; Start 05/28/16 at 20:45; Stop 05/28/16 at 20:46; Status DC Metoclopramide HCl (REGLAN Inj) 10 mg O ONCE IV Last administered on 22:31; Start 05/28/16 at 22:00; Stop 05/28/16 at 22:01; Status UNV Iohexol 1 bottle 1 bottle STK-MED ONCE .ROUTE ; Start 05/28/16 at 21:59; Stop at 22:00; Status DC Sodium Chloride (NS) 100 ml @ As Directed STK-MED ONCE .ROUTE ; Start 05/28/16 at 21:59; Stop 05/28/16 at 22:00; Status DC Sodium Chloride (Iv Flush) 10 ml STK-MED ONCE .ROUTE ; Start 05/28/16 at 21:59; Stop 05/28/16 at 22:00; Status DC Pharmacy Profile Note (/Maalox/ Lidocaine Soln) 30 ml O ONCE PO Last administered on 05/28/16 22:41; Start 05/28/16 at 22:45; Stop 05/28/16 at 22:46 ; Status DC Ketorolac Tromethamine (Toradol) 30 mg O ONCE IV Last administered on 22:58; Start 05/28/16 at 23:00; Stop 05/28/16 at 23:01; Status DC Lorazepam (Ativan) 1 mg O ONCE IV Last administered on 05/28/16 23:22; Start 05/28/16 at 23:15; Stop 05/28/16 at 23:16; Status DC Progress Progress 2044 - IVF started, Zofran 4 mg IV given. Meclizine given. 2199- Continues to have nausea. Reglan 10 mg IV given 2244. reports patient has been belching a lot today and never belches. GI cocktail given. Patient appears restless, reports he has been this way and very anxious lately as well as depressed because of the back pain and limitations. Toradol ordered to help with discomfort as he has not been taking anything for pain. Dizziness he complained of at intake is gone. Difficult to fully assess patient, he becomes teary and paces around room. 2299 - Patient agreeable to take Ativan for his anxiety and stress. 1 mg given. EKG EKG : Rate: <60 Rhythm: sinus [place]: normal QRS: normal Intervals: normal ST/T: normal Interpreted by: signing physician Xray Xray : Xray: KUB Upright Interpretation: Abnormal (non specific changes), Interpreted by Me (june) CT CT : CT: Abd/Pelvis IV contrast Interpretation: Normal, Faxed Report ANTHONY FARR APRN May 28, 2016 20:26
[2016-05-28] MEDS ORDERED: NORMAL SALINE 1,000 ML IV ONE (20:36)
[2016-05-28] MEDS ORDERED: MECLIZINE 25 MG TABLET PO ONE (20:45)
[2016-05-28] MEDS ORDERED: ONDANSETRON 4mg/2ml INJECTION IV ONE (20:45)
--- OUTSIDE RECORDS SUMMARY | 2016-05-28 21:12 | XMS REPORT | Continuity of Care Document ---
Author Author [facility] Organization [facility] Address Unknown Phone Unavailable Allergies Active Description Code Type Severity Reaction Onset Reported/Identified Relationship to Patient Clinical Status Yes No Known Medication Allergies NKMA N/A N/A 01/28/2014 Yes Levaquin NKMA N/A [id number] 06/03/2015 Medications Problems Procedures Results Test Result [...] Status Pt. Type Provider Facility Loc./Unit Complaint [id number] 05/24/2016 16:05:00 2016 23:59:00 DIS Outpatient Kyle Berry [facility] Mur IM BACK PAIN 1 WEEK [id number] 12/10/2015 09:54:00 2015 23:59:00 DIS Outpatient Kyle Berry [facility] Mur IM zostavax [id number] 12/10/2015 09:05:00 2015 23:59:00 DIS Outpatient Kyle Berry [facility] Mur IM re establish care [id number] 06/03/2015 08:12:00 2015 23:59:00 DIS Outpatient Za Palafox [facility] FC ENT RECURRENT SINUS INFECTIONS DEVIATED SEPTUM [id number] 05/27/2015 17:22:00 2015 23:59:00 DIS Outpatient Denis Teague [facility] New IC SINUS ISSUES [id number] 03/03/2015 17:29:00 2015 23:59:00 DIS Outpatient Denis Teague [facility] New IC POSS SINUS INFEC [id number] 02/15/2014 08:05:00 2013 23:59:00 DIS Outpatient Kyle Berry [facility] Mur IM left sided pain [id number] 02/05/2014 07:35:00 2013 23:59:00 DIS Outpatient Kyle Berry [facility] Mur IM IC f/u cough and congestion [id number] 01/28/2014 17:43:00 2013 23:59:00 DIS Outpatient Axel Shah [facility] New IC POSS SINUS INFEC
[2016-05-28 21:17] LABS: BASOPHILS # (AUTO) 0.1 T/MM3 (0-0.2); BASOPHILS % (AUTO) 0.6 % (0-2); EOSINOPHILS # (AUTO) 0.2 T/MM3 (0-0.5); EOSINOPHILS % (AUTO) 1.8 % (0-4); HCT - HEMATOCRIT 45.8 % (41-53); IMMATURE GRANULOCYTE # (AUTO) 0.05 T/MM3 (0.00-0.03); IMMATURE GRANULOCYTE % (AUTO) 0.4 % (0.0-0.5); LYMPHOCYTES # (AUTO) 2.4 T/MM3 (1-4.8); LYMPHOCYTES % (AUTO) 19.9 % (23-45); MEAN CORPUSCULAR HGB 27.5 UUG (26-34); MEAN CORPUSCULAR HGB CONC(MCHC 32.8 GM/DL (31-37); MEAN PLATELET VOLUME 11.1 UM3 (9.4-12.4); MONOCYTES # (AUTO) 0.8 T/MM3 (0-0.8); MONOCYTES % (AUTO) 6.2 % (0-9.0); NEUTROPHILS #(AUTO)-ABSOLUTE 8.7 T/MM3 (1.8-7.7); NEUTROPHILS % (AUTO) 71.1 % (33-66); RED BLOOD COUNT 5.45 M/MM3 (4.50-5.90); WBC - WHITE BLOOD COUNT 12.2 T/MM3 (4.5-11.0)
[2016-05-28 21:28] LABS: ALBUMIN 4.2 G/DL (3.5-5.0); ALBUMIN/GLOBULIN RATIO 1.4 RATIO (1.1-2.2); ALKALINE PHOSPHATASE 76 U/L (38-126); ALT (SGPT) 51 U/L (21-72); ANION GAP 15 MEQ/L (5-15); AST (SGOT) 32 U/L (17-59); BUN/CREATININE RATIO 24 RATIO (6-26); CALCIUM 9.9 MG/DL (8.4-10.2); CHLORIDE 102 MEQ/L (98-107); CO2 - CARBON DIOXIDE 27 MEQ/L (22-30); GLOMERULAR FILTRATION RATE 75; GLUCOSE 112 MG/DL (75-110); LIPASE 111 U/L (23-300); POTASSIUM 4.6 MEQ/L (3.6-5); SODIUM 144 MEQ/L (134-144); TOTAL PROTEIN 7.1 G/DL (6.3-8.2)
--- NOTE | 2016-05-28 21:29 | NUR ---
RETURNS FROM XRAY
[2016-05-28] MEDS ORDERED: NORMAL SALINE 100 ML ONE (21:59)
[2016-05-28] MEDS ORDERED: SALINE FLUSH 10ml SYRINGE ONE (21:59)
[2016-05-28] MEDS ORDERED: IOHEXOL 300 MG/ML 100ml INJECTION ONE (21:59)
[2016-05-28] MEDS ORDERED: METOCLOPRAMIDE 10mg/2ml INJECTION IV ONE (22:00)
[2016-05-28 22:10] LABS: BLOOD, URINE TRACE-INTACT (NEGATIVE); COLOR,URINE YELLOW (YELLOW); LEUKOCYTE ESTERASE ,URINE NEGATIVE (NEGATIVE); NITRITE,URINE NEGATIVE (NEGATIVE); UROBILINOGEN,URINE 0.2 EU/DL (NORMAL)
--- NOTE | 2016-05-28 22:41 | NUR ---
ANTHONY GUTIERREZ IN WITH PT
[2016-05-28] MEDS ORDERED: G.I. COCKTAIL 30ml PO ONE (22:45)
[2016-05-28] MEDS ORDERED: KETOROLAC 30mg/ml INJECTION IV ONE (23:00)
[2016-05-28] MEDS ORDERED: LORAZEPAM 2 MG/ML INJECTION IV ONE (23:15)
[2016-05-28 23:47] VITALS: PULSE 56; RESP 18; TEMP 98.1; O2SAT 98
[2016-05-28 23:51] VITALS: BP 117/54
--- NOTE | 2016-05-30 13:19 | DI ---
Indication: ITS.REASON: abd discomfort, nausea PROCEDURE: CT ABD/PELVIS W/CONTRAST ONLY: Encounter: Initial Comparison: None Technique: Axial CT images were performed through the abdomen and pelvis after the administration of intravenous contrast. Coronal and sagittal two-dimensional reformats. Automated Exposure Control and Iterative Reconstruction dose reducing techniques were utilized. Contrast: Omnipaque 300 100 mL Findings: The lung bases are clear. The liver is decreased in attenuation relative to the spleen consistent with fatty infiltration. There are couple tiny low-attenuation subcentimeter foci in the liver which are too small to definitively characterize. No bile duct dilatation. The gallbladder, spleen, pancreas and adrenal glands are within normal limits. The left kidney shows a superior pole probable cyst. Right kidney is normal. No abdominal or pelvic lymphadenopathy. Mild atherosclerotic plaque present. Bladder, prostate and rectum are within normal limits. No free fluid. No evidence of a bowel obstruction. Bone windows are within normal limits. Impression: 1. No acute disease process seen in the abdomen or pelvis. 2. Hepatic steatosis. There is a preliminary report by [facility]. .
--- NOTE | 2016-05-30 13:22 | DI ---
Indication: ITS.REASON: NAUSEA, ABD PAIN PROCEDURE: KUB W/UPRIGHT: Encounter: Initial Comparison: CT abdomen and pelvis from the same date Findings: The visualized lung bases are clear. There is no free air on the upright view. The bowel gas pattern is nonobstructive and nonspecific. Gas is seen in nondilated small and large bowel to the level of the rectum. Moderate stool is seen throughout the colon. The bony structures are grossly unremarkable. Impression: Nonobstructive nonspecific bowel gas pattern. .
== END 2016-05-28 23:47 | disposition home or self-care (01) ==
LOC: ED 19:45
DX: R11.0 Nausea (principal); R42 Dizziness and giddiness; R10.30 Lower abdominal pain, unspecified; F41.9 Anxiety disorder, unspecified
CPT/HCPCS: 74020; 74177; 80053; 81003; 83690; 84484; 85025; 93005; 96361; 96374; 96375; 99284; J1885; J2060; J2405; J2765; J7030; J7050; J7999; Q9967

== ENCOUNTER → 2016-07-13 | Outpatient (CLI) | payer BC ==
[~2016-07-13] MED LIST: ASPI-557 PO; ESOM20TA PO; METO-277 PO; ONDA4TAB7 PO; PARO10TA72 PO; TRAM50TA4 PO
--- NOTE | 2016-07-13 09:37 | DI ---
Indication: ITS.REASON: M54.16 LUMBAR RADICULOPATHY PROCEDURE: MRI LUMBAR SPINE W/O CONTRAST: Encounter: Initial Comparison: MRI lumbar spine dated August 20, 2013 Technique: Multiplanar multisequence MR imaging of the lumbar spine was performed without contrast. Findings: Alignment lumbar spine shows mild scoliosis. No acute fracture identified. Degenerative endplate change at L5-S1. The conus medullaris terminates normally at L1. Paraspinal soft tissues are unremarkable. Segmental analysis: L1-L2: Mild disk bulging without central canal or neural foraminal stenosis. L2-L3: Minimal disk bulge without significant central canal or neural foraminal stenosis. L3-L4: Slight disk bulging with degenerative facet change contributing to minimal central canal narrowing. Disk material abuts the traversing left L4 nerve root. Mild bilateral neural foraminal narrowing. There is disk material abutting both exiting L3 nerve roots but not displacing them. Overall appearance is stable. L4-L5: Small central disk protrusion with degenerative facet disease causes minimal central canal narrowing. Narrowing of the right lateral recess without true neural foraminal stenosis. No significant left foraminal narrowing. L5-S1: Disk desiccation with slight bulging but no significant central canal stenosis. There is mild bilateral neural foraminal narrowing. This is stable. Impression: Overall stable mild degenerative disk disease in the lumbar spine. .
== END ==
LOC: IMA 07:00
PROVIDERS: ATTEND Orthopaedic Surgery
DX: M51.16 Intervertebral disc disorders with radiculopathy, lumbar region (principal)